=== PATIENT | male | born 1970 | race Caucasian/White ===

== ENCOUNTER 2021-01-25 07:56 | Day surgery (SDC) | payer SELFPAY ==
[2021-01-25] VITALS (7 sets, daily range): BP systolic 112–125; BP diastolic 81–88; PULSE 60–71; RESP 14–16; TEMP 36.2–36.8; O2SAT 99–100; BMI 23.3
[2021-01-25] MEDS: Lactated Ringers 1,000 ML 15 ML IV (08:35)
--- NOTE | 2021-01-25 10:12 | PCM.HP.BLA ---
History and Physical Date of Admission: 01/25/21 Date of Service: 12/25/20 MR#:[id number]: [facility] #:[id number]:1970 Provider:Dr. Harlan Contreras MDAge/Sex: 50/M Location:[facility] [place].AStatus:Signed Intake Intake Visit Reasons: C-Scope Consult HPI HPI HPI: ISAURO FERRARI, is a 50 M who presents to the office today accompanying his Mrs. Pedro Ferrari for a newly?diagnosed left breast mass. However, during the course of the visit we discussed that he needed to be evaluated for a screening colonoscopy given a family history of colon cancer?diagnosed in his twin brother 2 years ago. Patient has not had prior colonoscopy. Patient has no personal history of colon cancer, inflammatory bowel disease or diverticulitis. They describe their bowel habits as normal occurring 1 time daily and without any blood. They are not associated with any significant straining. They do not regularly take fiber supplements. Beyond the family history of patient's twin brother, he states that his father has had many polyps removed. The patient's weight is stable. Patient has no significant past medical history and does not take any scheduled medications. He has had only 2 surgical procedures: A tonsillectomy and left fifth finger partial amputation. Exam Const General: cooperative, healthy appearing, comfortable, no acute distress, well developed and well groomed Nutritional Appearance: thin Orientation: alert, awake and oriented x3 Resp Effort & Inspection: normal respiratory effort Auscultation: no rales, no rhonchi and no wheezes Cardio Rate: regular rate Rhythm: regular rhythm Heart Sounds: S1 normal and S2 normal GI Inspection: normal to inspection (Well-defined abdominal wall), non-distended and no visible herniation Palpation: soft and nontender Assessment and Plan Assessment and Plan (1) Family history of colon cancer: Status: Acute Comment: This is a 50-year-old male with a family history of colon cancer in his twin brother?diagnosed 2 years ago at the age of 50. For his part, Mr. Ferrari denies any abnormalities with his bowel function and simply would like to schedule screening colonoscopy given his family history. Beyond his twin brother, he does comment that his father has had numerous polyps removed. With such a significant family history and his age already greater than 50 years old I would recommend a screening colonoscopy in the very near future. Details of the procedure including the pre-? procedure prep were discussed. Plan: Plan will be to complete colonoscopy on first mutually agreeable date under local MAC. Pre-procedure prep discussed and paper instructions provided. Patient is also made aware that he will need to have a tractor driver teamster with him the day of the procedure. Coding Level of Care Code Off vis,est,level 3 Diagnoses Family history of colon cancer Z80.0 I have re-examined the patient. There are no clinical changes since date of exam. Patient states that he completed his prep without issue. He is now having straight Gatorade coming out with bowel movements. Plan to proceed with screening colonoscopy. Patient does have family history of colon cancer in twin brother.
--- NOTE | 2021-01-25 11:45 | OP.CCLET_ITS ---
01/25/2021 Tobias Reardon Re : Colonoscopy procedure for Jw Ferrari Beatrizr Alexys This procedure was performed on January. My impressions and recommendations are as follows: Impressions : - The entire examined colon is normal. - The distal rectum and anal verge are normal on retroflexion view. Recommendations : - Discharge patient to home (via wheelchair). - Resume regular diet today. - Continue present medications. - Repeat colonoscopy in 5 years for screening purposes. My findings are described in the full procedure note, which is enclosed. If I can be of further assistance, please feel free to contact me at Doctor phone number(s): , Work: . Sincerely, Harlan Contreras MD 01/25/2021 11:45:08 AM This report has been signed electronically.
--- NOTE | 2021-01-25 11:45 | OP.COLON_ITS ---
Patient Name: Jw Ferrari Procedure Date: 01/25/2021 11:05 AM Date of : 1970 Age: 50 Procedure: Colonoscopy Indications: Screening in patient at increased risk: Colorectal cancer in brother before age 60 Providers: Harlan Contreras MD Medicines: See the Anesthesia note for documentation of the administered medications Patient Profile: Last Colonoscopy: none. The patient's first colonoscopy is today. Refer to note in patient chart for documentation of history and physical. Complications: No immediate complications. Estimated blood loss: None. Procedure: Pre-Anesthesia Assessment: - The heart rate, respiratory rate, oxygen saturations, blood pressure, adequacy of pulmonary ventilation, and response to care were monitored throughout the procedure. After I obtained informed consent, the scope was passed under direct vision. Throughout the procedure, the patient's blood pressure, pulse, and oxygen saturations were monitored continuously. The colonoscope was introduced through the anus and advanced to the cecum, identified by appendiceal orifice and ileocecal valve. The colonoscopy was performed without difficulty. The patient tolerated the procedure well. The quality of the bowel preparation was adequate. Scope In: 11:11:06 AM Scope Withdrawal Time 0 hours 17 minutes 13 seconds Scope Out: 11:38:24 AM Total Procedure Duration Time 0 hours 27 minutes 18 seconds Findings: The entire examined colon appeared normal. The retroflexed view of the distal rectum and anal verge was normal and showed no anal or rectal abnormalities. No biopsies or other specimens were collected for this exam. Impression: - The entire examined colon is normal. - The distal rectum and anal verge are normal on retroflexion view. Recommendation: - Discharge patient to home (via wheelchair). - Resume regular diet today. - Continue present medications. - Repeat colonoscopy in 5 years for screening purposes. Procedure Code(s): --- Professional --- G0105, Colorectal cancer screening; colonoscopy on individual at high risk Diagnosis Code(s): --- Professional --- Z80.0, Family history of malignant neoplasm of digestive organs CPT copyright 2017 [employer]. All rights reserved. The codes documented in this report are preliminary and upon cleaner industrial review may be revised to meet current compliance requirements. Harlan Contreras MD 01/25/2021 11:45:08 AM This report has been signed electronically. Number of Addenda: 0 Note Initiated On: 01/25/2021 11:05 AM
== END 2021-01-25 12:57 | disposition home or self-care (01) ==
LOC: EN 08:04 → AC 08:08
PROVIDERS: PCP Family Medicine; Referring Provider Family Medicine; Visit Provider Surgery
PROC: 0DJD8ZZ Inspection of Lower Intestinal Tract, Via Natural or Artificial Opening Endoscopic (ICD-10-PCS; CPT 45378; principal; 2021-01-25 10:25)
DX: Z12.11 Encounter for screening for malignant neoplasm of colon (principal); Z80.0 Family history of malignant neoplasm of digestive organs
CPT/HCPCS: 45378; 87426; J7120; J2405